=== PATIENT | female | born 1960 | race Caucasian/White ===

== ENCOUNTER 2019-05-23 19:35 | Emergency (ER) | payer BC, SELFPAY | END 2019-05-23 21:17 | disposition home or self-care (01) | PROVIDERS: Emergency Provider Emergency Medicine; PCP Internal Medicine; Visit Provider Emergency Medicine | DX: S92.351A Displaced fracture of fifth metatarsal bone, right foot, initial encounter for closed fracture (principal); X50.9XXA Other and unspecified overexertion or strenuous movements or postures, initial encounter | CPT/HCPCS: 29515; 73610; 99284 ==

== ENCOUNTER 2024-05-07 17:05 | Emergency (ER) | payer OTHER, SELFPAY ==
--- NOTE | ~2024-05-07 | XR_ITS ---
EXAM: XR foot LT min 3V DATE: 05/07/2024 18:21 HISTORY: arch pain no injury . COMPARISON: None available. FINDINGS: Normal mineralization. No fracture or dislocation. No lytic or blastic lesion. Mild degene rative change at the first MTP joint. Plantar enthesopathy. No erosion or periosteal change. Soft tis sues within normal limits. IMPRESSION: No acute osseous finding in the left foot. Reviewed, dictated and finalized at location K.
[2024-05-07 17:43] VITALS: BP 140/79; PULSE 85; RESP 16; TEMP 36.8; O2SAT 100
--- NOTE | 2024-05-07 18:00 | ED.EXTPRO ---
HPI - Extremity Problem General Chief complaint: Extremity Problem,Nontraumatic Stated complaint: Injured Left Foot Source: patient, RN notes reviewed and old records reviewed Mode of arrival: ambulatory Limitations: no limitations History of Present Illness HPI Narrative: patient complains of pain to arch of left foot that began at about 3:00 p.m. today. she denies all injury and trauma. She reports pain is worse with ambulation. She has not taken anything for her symptoms. 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 She is concerned that pain may be related to this condition Related Data Home Medications Medication Instructions Recorded Confirmed cyanocobalamin (vitamin B-12) 1,000 mcg IM MONTHLY 05/07/24 05/07/24 1,000 mcg/mL injection solution ergocalciferol (vitamin D2) 1,250 1,250 mcg PO WEEKLY 05/07/24 05/07/24 mcg (50,000 unit) capsule imatinib 100 mg tablet (Gleevec) 100 mg PO DAILY 05/07/24 05/07/24 naltrexone 4.5 mg capsule (Naltrex) 4.5 mg PO DAILY 05/07/24 05/07/24 Allergies Allergy/AdvReac Type Severity Reaction Status Date / Time Sulfa (Sulfonamide AdvReac Mild Hives Verified 05/07/24 17:41 Antibiotics) Review of Systems Review of Systems: All systems reviewed & are unremarkable except as noted in HPI and below Constitutional: Constitutional: Reports no additional constitutional complaints ENT: Reports system reviewed and no additional complaints, except as documented Cardiovascular: Cardiovascular: Reports no additional cardiovascular complaints Respiratory: Respiratory: Reports no additional respiratory complaints Gastrointestinal: Gastrointestinal: Reports no additional gastrointestinal complaints Musculoskeletal: Musculoskeletal: Reports as per HPI PMFSH Comments At the time of my signature, I reviewed and agree with the nursing past medical, surgical, social, and family history. There is no relevant family history pertinent to the patient complaint. Exam Const: General: cooperative, no acute distress, alert and awake Orientation/consciousness: oriented to person, oriented to place and oriented to time HENMT: Head: normal to inspection Resp: Effort & Inspection: normal respiratory effort and able to speak in complete sentences Auscultation: clear to auscultation bilaterally, no crackles, no rales, no rhonchi and no wheezes Cardio: Palpation: normal PMI Rate: regular rate Rhythm: regular rhythm Heart sounds: S1 normal heart sound present and S2 normal heart sound present Neuro: General: oriented to person, oriented to place and oriented to time Cranial nerves: Yes CN's II-XII intact bilaterally Extrem: Ankle/foot/toe images: 1. tenderness Psych: Appearance: grossly normal Thought process: Normal thought process present Insight: Good insight present (Psych) Judgement: Good judgement present (Psych) Course Course Level of Care: Express Care Visit Vital Signs Vital signs: Vital Signs Temperature 98.2 F 05/07/24 17:43 Pulse Rate 85 05/07/24 17:43 Respiratory Rate 16 05/07/24 17:43 Blood Pressure 140/79 05/07/24 17:43 Pulse Oximetry 100 05/07/24 17:43 Temperature 98.2 F 05/07/24 17:43 Pulse Rate 85 05/07/24 17:43 Respiratory Rate 16 05/07/24 17:43 Blood Pressure 140/79 05/07/24 17:43 Pulse Oximetry 100 05/07/24 17:43 Reviewed MDM - Extremity (Nontraumatic) MDM Narrative Medical decision making narrative: patient with exam consistent with plantar fasciitis. Treat as same. Negative x-ray. Follow with primary care provider, blood pressure elevated 140/79. Please follow-up primary care provider for this as well. Discharge instructions reviewed with patient, as well as provided in writing per nursing staff. The instructions also include specific and strict return/GO TO THE ER as well as f/u information. All questions have been answered, and the patient deny any further questions with discharge and dis
== END 2024-05-07 18:36 | disposition home or self-care (01) ==
PROVIDERS: Emergency Provider Nurse Practitioner Family; PCP Hospitalist
DX: M72.2 Plantar fascial fibromatosis (principal); Q79.60 Ehlers-Danlos syndrome, unspecified; M19.90 Unspecified osteoarthritis, unspecified site; M81.0 Age-related osteoporosis without current pathological fracture; D89.40 Mast cell activation, unspecified
CPT/HCPCS: 73630; 99213; G0463